=== PATIENT | male | born 1935 | race Caucasian/White ===

== ENCOUNTER → 2016-07-19 | Outpatient (CLI) | payer MEDICARE | END | disposition home or self-care (01) | LOC: PCVCCLINIC 14:43 | PROVIDERS: ATTEND Internal Medicine Cardiovascular Disease | DX: I25.10 Atherosclerotic heart disease of native coronary artery without angina pectoris (principal); I10 Essential (primary) hypertension; R42 Dizziness and giddiness; E78.00 Pure hypercholesterolemia, unspecified | CPT/HCPCS: 93005; G0463 ==

== ENCOUNTER → 2016-11-09 | Outpatient (CLI) | payer BC | END | disposition home or self-care (01) | LOC: PCVCCLINIC 14:40 | PROVIDERS: ATTEND Internal Medicine Cardiovascular Disease | DX: I25.10 Atherosclerotic heart disease of native coronary artery without angina pectoris (principal); I35.9 Nonrheumatic aortic valve disorder, unspecified; I10 Essential (primary) hypertension; E78.00 Pure hypercholesterolemia, unspecified; I25.2 Old myocardial infarction; M19.90 Unspecified osteoarthritis, unspecified site; Z79.82 Long term (current) use of aspirin; Z79.899 Other long term (current) drug therapy; Z85.46 Personal history of malignant neoplasm of prostate; Z85.830 Personal history of malignant neoplasm of bone; Z88.0 Allergy status to penicillin; Z96.651 Presence of right artificial knee joint; Z87.891 Personal history of nicotine dependence | CPT/HCPCS: 93005; G0463 ==

== ENCOUNTER → 2017-05-09 | Outpatient (CLI) | payer BC | END | disposition home or self-care (01) | LOC: PCVCIMAG 13:36 | DX: I08.3 Combined rheumatic disorders of mitral, aortic and tricuspid valves (principal); I25.10 Atherosclerotic heart disease of native coronary artery without angina pectoris; I10 Essential (primary) hypertension; E78.00 Pure hypercholesterolemia, unspecified; Z79.899 Other long term (current) drug therapy; Z79.82 Long term (current) use of aspirin; Z87.891 Personal history of nicotine dependence | CPT/HCPCS: 93005; 93306; G0463 ==

== ENCOUNTER → 2017-08-16 | Outpatient (CLI) | payer BC | END | disposition home or self-care (01) | LOC: PCVCCLINIC 15:04 | DX: I25.10 Atherosclerotic heart disease of native coronary artery without angina pectoris (principal); E78.00 Pure hypercholesterolemia, unspecified; I35.9 Nonrheumatic aortic valve disorder, unspecified; I10 Essential (primary) hypertension; M80.88XS Other osteoporosis with current pathological fracture, vertebra(e), sequela; R94.31 Abnormal electrocardiogram [ECG] [EKG] | CPT/HCPCS: 93005; G0463 ==

== ENCOUNTER → 2017-12-12 | Outpatient (CLI) | payer BC | END | disposition home or self-care (01) | LOC: PCVCCLINIC 15:35 | PROVIDERS: ATTEND Internal Medicine Cardiovascular Disease | DX: I25.10 Atherosclerotic heart disease of native coronary artery without angina pectoris (principal); I35.9 Nonrheumatic aortic valve disorder, unspecified; I10 Essential (primary) hypertension; E78.00 Pure hypercholesterolemia, unspecified; Z87.891 Personal history of nicotine dependence; Z79.82 Long term (current) use of aspirin; Z88.0 Allergy status to penicillin | CPT/HCPCS: 93005; G0463 ==

== ENCOUNTER → 2018-05-22 | Outpatient (CLI) | payer BC | END | disposition home or self-care (01) | LOC: PCVCCLINIC 14:34 | PROVIDERS: ATTEND Internal Medicine Cardiovascular Disease | DX: I25.10 Atherosclerotic heart disease of native coronary artery without angina pectoris (principal); R42 Dizziness and giddiness; E78.00 Pure hypercholesterolemia, unspecified; K21.9 Gastro-esophageal reflux disease without esophagitis; J43.9 Emphysema, unspecified; Z79.82 Long term (current) use of aspirin; Z87.891 Personal history of nicotine dependence | CPT/HCPCS: 93005; G0463 ==

== ENCOUNTER → 2018-08-08 | Outpatient (CLI) | payer BC ==
--- NOTE | 2018-08-08 14:14 | PCVCIMAG ---
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 Annalise aortic valve replacement 2D Dimensions IVSd: 12.84 (7-11mm)LVOT Diam: 25.55 (18-24mm) LVDd: 37.97 mm PWd: 10.70 (7-11mm)Ascending Ao: 34.65 (22-36mm) LVDs: 29.87 (25-40mm) Left Atrium: 44.72 (27-40mm) Aortic Root: 34.09 mm LV Single Plane 4CH: 44.40 % LV Single Plane 2CH: 47.77 % Biplane EF: 46.5 % Volumes Left Atrial Volume (Systole) Single Plane 4CH: 98.87 mLSingle Plane 2CH: 112.10 mL LA ESV Index: 60.00 mL/m2 Aortic Valve AoV Peak Solomon.: 1.86 m/s AO Peak Gr.: 13.88 mmHgLVOT Max P.24 mmHg AO Mean Gr.: 6.31 mmHgLVOT Mean P.20 mmHg AO V2 Mean: 1.16 m/sLVOT Max V: 1.03 m/s AO V2 VTI: 28.95 cmLVOT Mean V: 0.69 m/s XOCHILT (VTI): 2.77 [id number] V1 VTI: 15.62 cm XOCHILT Vmax: 2.83 cm2 SV (LVOT): 80.09 mL Mitral Valve MV Peak Gr.: 15.54 mmHg MV Mean Gr.: 5.75 mmHgE/A Ratio: 0.5 MV Decel. Time: 274.90 ms MV E Max Solomon.: 0.74 m/s MV A Solomon.: 1.50 m/s MV Max Solomon.: 1.97 m/s MV Mean Solomon.: 1.07 m/s MV VTI: 397.78 mm MVA VTI: 201.35 mm2 MV PHT: 119.81 ms MVA (PHT): 1.84 cm2 IVRT: 124.57 ms Pulmonary Valve PV Peak Solomon.: 0.86 m/sPV Peak Gr.: 2.99 mmHg Tricuspid Valve TR Peak Solomon.: 2.40 m/s TR Peak Gr.: 23.02 mmHg Left Ventricle The left ventricle is normal size. There is normal LV segmental wall motion. Mild concentric left ventricular hypertrophy. Left ventricular systolic function is borderline. LVEF is 50%. Grade I - abnormal relaxation pattern. Right Ventricle The right ventricle is normal size. The right ventricular systolic function is normal. Pacemaker lead is present in the right ventricle. Atria Left atrium is severely dilated. Right atrium is mildly dilated. Pacemaker lead is present in the right atrium. Aortic Valve Normally functioning #26 Annalise aortic valve replacement. Trace aortic regurgitation. There is no aortic valvular stenosis. Calculated aortic valve area is 2.8 cm2 with maximum pressure gradient of 14 mmHg and mean pressure gradient of 6 mmHg. Mitral Valve Heavy mitral annular calcification with calcified leaflets. Trace mitral regurgitation. Mild-moderate mitral stenosis. Calculated mitral valve area is 1.8 cm2 with maximum pressure gradient of 15 mmHg and mean pressure gradient of 6 mmHg. Tricuspid Valve The tricuspid valve is normal in structure. Mild tricuspid regurgitation with PAP of 30 mmHg. Pulmonic Valve The pulmonary valve is normal in structure. There is no pulmonic valvular regurgitation. Great Vessels The aortic root is normal in size. IVC is normal in size and collapses >50% with inspiration. Pericardium There is no pericardial effusion. There is no pleural effusion. <Conclusion> The left ventricle is normal size. Mild concentric left ventricular hypertrophy. Left ventricular systolic function is borderline. LVEF is 50%. Grade I - abnormal relaxation pattern. The right ventricle is normal size. Pacemaker lead is present in the right ventricle. Left atrium is severely dilated. Right atrium is mildly dilated. Pacemaker lead is present in the right atrium. Normally functioning #26 Annalise aortic valve replacement. Trace aortic regurgitation. Mild-moderate mitral stenosis. Mild tricuspid regurgitation with PAP of 30 mmHg.
== END | disposition home or self-care (01) ==
LOC: PCVCIMAG 13:10
PROVIDERS: ATTEND Internal Medicine Cardiovascular Disease
DX: I08.1 Rheumatic disorders of both mitral and tricuspid valves (principal); I25.10 Atherosclerotic heart disease of native coronary artery without angina pectoris; Z88.0 Allergy status to penicillin
CPT/HCPCS: 93306